=== PATIENT | female | born 1945 | race Caucasian/White ===

== ENCOUNTER 2021-09-15 08:33 | Outpatient (CLI) | payer MEDICARE, BC | END 2021-09-15 08:34 | disposition home or self-care (01) | LOC: CSHMAMMO 08:33 | PROVIDERS: ATTEND Family Medicine | DX: Z12.31 Encounter for screening mammogram for malignant neoplasm of breast (principal); Z91.89 Other specified personal risk factors, not elsewhere classified; Z80.3 Family history of malignant neoplasm of breast | CPT/HCPCS: 77063; 77067 ==

== ENCOUNTER 2022-08-07 14:47 | Observation (INO) | payer MEDICARE, BC ==
[~2022-08-07 14:47] MED LIST: Heparin 10,000 UNITS/ 10 ML VIAL ONE; Nitroglycerin 2% Ointment 1 INCH/1 GM Packet ONE
[2022-08-07] MEDS ORDERED: Ondansetron PF 4 MG/2 ML Vial ONE ×2 (15:13→15:26)
[2022-08-07] MEDS ORDERED: Morphine 4 MG/ML VIAL ONE ×3 (15:13→18:02)
[2022-08-07 15:32] LABS: #Basophils 0.1 10x3/uL (0.0-0.2); #Monocytes 0.8 10x3/uL (0.0-1.1); #Neutrophils 10.6 10x3/uL (1.5-8.4); %Basophils 0.4 % (0.0-2.0); %Eosinophils 0.1 % (0.0-6.0); %Monocytes 6.4 % (0.0-10.0); %Neutrophils 84.8 % (40.0-75.0); Hemoglobin 13.8 g/dL (12.0-15.5); Mean Corpuscular HGB CONC 34.4 g/dL (32.0-36.0); Mean Corpuscular Hemoglobin 29.4 pg (27.0-33.0); Mean Corpuscular Volume 85.3 fl (81.6-98.3); Mean Platelet Volume 11.3 fl (7.4-10.4); Platelet Count 177 10x3/uL (150-450); RBC Distribution Width 12.6 % (11.5-14.5); White Blood Cell (WBC) Count 12.5 10x3/uL (3.5-10.5)
[2022-08-07 15:44] LABS: ALT (SGPT) 16 U/L (8-55); AST (SGOT) 26 U/L (5-34); Albumin 4.4 g/dL (3.4-4.8); Alkaline Phosphatase 57 U/L (40-110); Anion Gap 15 mmol/L (10-20); BUN (Urea Nitrogen) 14 mg/dL (9.8-20.1); Bilirubin, Total 1.1 mg/dL (0.2-1.2); Calc. Creatinine Clearance 0 mL/min (70-130); Calcium 9.8 mg/dL (7.8-10.44); Carbon Dioxide 26 mmol/L (23-31); Chloride 99 mmol/L (98-107); Estimated GFR 66; Globulin 3.3 g/dL (2.4-3.5); Glucose 123 mg/dL (83-110); Potassium 3.9 mmol/L (3.5-5.1); Protein, Total 7.7 g/dL (5.8-8.1); Sodium 136 mmol/L (136-145)
[2022-08-07] MEDS ORDERED: Nitroglycerin 0.4 MG TAB 1 EACH ONE ×2 (15:54→16:18)
[2022-08-07] MEDS ORDERED: Aspirin Chewable 81 MG TAB ONE (16:20)
[2022-08-07] MEDS ORDERED: Fentanyl 100 MCG/2 ML VIAL ONE (16:29)
[2022-08-07] MEDS ORDERED: Midazolam HCl 2 mg/2 ml Vial ONE (16:29)
[2022-08-07] MEDS ORDERED: Heparin 10,000 UNITS/ 10 ML VIAL ONE (16:29)
[2022-08-07] MEDS ORDERED: Heparin 25,000 units/D5W 500 ML ONE (16:31)
[2022-08-07] MEDS ORDERED: Lidocaine 1% 20 ML MDV ONE (16:31)
[2022-08-07] MEDS ORDERED: Adenosine 6 MG/2 ML VIAL ONE (16:31)
[2022-08-07] MEDS ORDERED: Nitroglycerin 50 MG/250 ML BOT 250 ML ONE (16:31)
[2022-08-07] MEDS ORDERED: Sodium Chloride 0.9% 1,000 ML ONE (16:32)
[2022-08-07] MEDS ORDERED: Piperacillin/Tazobactam 4.5 GM VIAL ONE (17:07)
[2022-08-07 17:30] LABS: Bilirubin Neg (Negative); Blood, Urine Negative (Negative); Clarity Clear (Clear); Glucose, Urine (Dipstick) Normal (Negative); Ketone, Urine 15 mg/dL (Negative); Leukocyte 25 (Negative); Nitrite Negative (Negative); Protein, Urine (Dipstick) Negative (Neg-Trace); Specific Gravity, Urine 1.015 (1.002-1.036); Urobilinogen Normal mg/dL (Less than 2)
[2022-08-07] MEDS ORDERED: Ondansetron HCl/PF 4 MG in Sodium Chloride 0.9% 50 ML IVPB PRN (17:34)
[2022-08-07] MEDS ORDERED: Morphine 2 MG/ML VIAL SLOW IVP PRN (17:34)
[2022-08-07] MEDS ORDERED: hydrALAZINE 25 MG TAB PO PRN (17:34)
[2022-08-07] MEDS ORDERED: Nitroglycerin 0.4 MG TAB (25 Tab Bottle) SL PRN (17:34)
[2022-08-07] MEDS ORDERED: Sodium Chloride 0.9% 1,000 ML IV SCH (17:45)
[2022-08-07 17:49] LABS: Bacteria/HPF None Seen HPF (None Seen); RBC/HPF 0-3 HPF (0-3); Squamous Epithelial 0-3 HPF (0-3); WBC/HPF 0-3 HPF (0-3)
[2022-08-07 18:01] LABS: SARS-CoV-2 NAA Rapid Test Not Detected (NotDetected)
[2022-08-07] MEDS ORDERED: Ketorolac Tromethamine 30 MG/ML VIAL ONE (18:02)
[2022-08-07 20:10] VITALS: BMI 22.8
[2022-08-07] MEDS ORDERED: cloNIDine 0.1 MG TAB PO SCH (21:00)
[2022-08-07] MEDS ORDERED: Labetalol HCl 100 MG/20 ML VIAL SLOW IVP PRN (21:16)
[2022-08-07] MEDS ORDERED: Lisinopril 10 MG TAB PO SCH (22:15)
[2022-08-07] MEDS: Sodium Chloride 0.9% 1,000 ML IV SCH (22:30)
[2022-08-07] MEDS ORDERED: NIFEdipine XL 30 MG TAB PO SCH (23:30)
[2022-08-08] MEDS: Piperacillin/Tazobactam 3.375 GM in Sodium Chloride 0.9% 100 ML IVPB SCH ×3 (00:51→17:00)
[2022-08-08] MEDS ORDERED: Atenolol 50 MG TAB PO SCH (01:00)
[2022-08-08 05:33] LABS: Hemoglobin 13.7 g/dL (12.0-15.5); MDiff Complete? YES; Mean Corpuscular HGB CONC 34.6 g/dL (32.0-36.0); Mean Corpuscular Hemoglobin 29.7 pg (27.0-33.0); Mean Corpuscular Volume 85.9 fl (81.6-98.3); Platelet Count 141 10x3/uL (150-450); Red Blood Cell (RBC) Count 4.61 10x6/uL (3.90-5.03); White Blood Cell (WBC) Count 14.9 10x3/uL (3.5-10.5)
[2022-08-08 05:50] LABS: ALT (SGPT) 12 U/L (8-55); AST (SGOT) 24 U/L (5-34); Albumin 3.7 g/dL (3.4-4.8); Alkaline Phosphatase 52 U/L (40-110); Anion Gap 17 mmol/L (10-20); BUN (Urea Nitrogen) 12 mg/dL (9.8-20.1); Bilirubin, Total 1.3 mg/dL (0.2-1.2); Calc. Creatinine Clearance 55 mL/min (70-130); Calcium 8.8 mg/dL (7.8-10.44); Carbon Dioxide 21 mmol/L (23-31); Chloride 105 mmol/L (98-107); Estimated GFR 68; Globulin 2.9 g/dL (2.4-3.5); Glucose 88 mg/dL (83-110); Potassium 3.6 mmol/L (3.5-5.1); Protein, Total 6.6 g/dL (5.8-8.1); Sodium 139 mmol/L (136-145)
[2022-08-08 05:53] LABS: Troponin I 0.011 ng/mL (< 0.028)
[2022-08-08] MEDS: Morphine 4 MG/ML VIAL SLOW IVP PRN ×2 (06:19→17:05)
[2022-08-08 06:52] LABS: Band 6 % (5-11); Lymphocytes 7 % (21-51); Monocytes 4 % (0-10); Neutrophil 83 % (42-75)
[2022-08-08 06:53] LABS: Diff Comment (RBC Morph SCRN) NORMAL
[2022-08-08 06:54] LABS: Platelet Morphology Comment Appears Adequate
[2022-08-08] MEDS ORDERED: Spironolactone 25 MG TAB PO SCH (08:00)
[2022-08-08] MEDS ORDERED: EPINEPHrine 1 MG/ML AMP ONE (08:07)
[2022-08-08] MEDS ORDERED: Bupivacaine PF 0.5% 30 ML VIAL ONE (08:07)
[2022-08-08] MEDS ORDERED: Atenolol 25 MG TAB PO SCH (09:00)
[2022-08-08] MEDS ORDERED: NIFEdipine XL 30 MG TAB PO SCH (09:00)
[2022-08-08] MEDS ORDERED: Lisinopril 10 MG TAB PO SCH ×2 (09:00→21:00)
[2022-08-08] MEDS ORDERED: Fentanyl 250 MCG/5 ML VIAL ONE (14:59)
[2022-08-08] MEDS ORDERED: PROPOFOL 20 ML ONE (14:59)
[2022-08-08] MEDS ORDERED: Succinylcholine 200 MG/10 ml SYRINGE FS ONE (14:59)
[2022-08-08] MEDS ORDERED: PHENYLEPHRINE-NS 100 MCG/ML 10 ML SYRINGE ONE (14:59)
[2022-08-08] MEDS ORDERED: Glycopyrrolate 0.2 MG/ML 5 ML SYRINGE ONE (15:17)
[2022-08-08] MEDS: Sodium Chloride 0.9% 1,000 ML IV SCH ×2 (15:19→18:08)
[2022-08-08] MEDS ORDERED: Lidocaine 2% MPF 10 ML AMP (For Epidural Use) ONE (15:23)
[2022-08-08 18:02] VITALS: TEMP 96.7
[2022-08-08] MEDS ORDERED: traMADol HCl 50 MG TAB PO PRN (18:48)
[2022-08-08] MEDS ORDERED: HYDROcodone/Acetaminophen 5/325 mg Tablet PO PRN (18:56)
[2022-08-08 20:34] VITALS: BP 126/58
[2022-08-08] MEDS ORDERED: Lisinopril 20 MG TAB PO SCH (21:00)
== END 2022-08-08 22:00 | disposition home or self-care (01) ==
LOC: CSHERS 14:47 → CSHTELE 19:52 → INTOOBSV 19:52
PROVIDERS: ADMIT Surgery; ATTEND Hospitalist
PROC: 0DTJ4ZZ Resection of Appendix, Percutaneous Endoscopic Approach (ICD-10-PCS; principal; 2022-08-08)
DX: K35.890 Other acute appendicitis without perforation or gangrene (principal); Z20.822 Contact with and (suspected) exposure to COVID-19; R63.0 Anorexia; E78.5 Hyperlipidemia, unspecified; I10 Essential (primary) hypertension; E03.9 Hypothyroidism, unspecified; I95.9 Hypotension, unspecified; Z90.710 Acquired absence of both cervix and uterus; Z79.890 Hormone replacement therapy; Z79.899 Other long term (current) drug therapy; Z68.22 Body mass index [BMI] 22.0-22.9, adult
CPT/HCPCS: 44970; 71250; 74177; 80053; 83605; 84484 ×2; 85025; 87086; 93005; 96374; 96375; 96376; 99285; U0002; 36415; 81003; 81015; 84443; 88304; A4649; J0153; J0171; J1644; J1885; J2250; J2270; J2405; J2543; J2704; J3010; J3490; J7050; S0020

== ENCOUNTER 2022-09-17 10:51 | Outpatient (CLI) | payer MEDICARE, BC | END 2022-09-17 10:52 | disposition home or self-care (01) | LOC: CSHMAMMO 10:51 | PROVIDERS: ATTEND Obstetrics & Gynecology | DX: Z12.31 Encounter for screening mammogram for malignant neoplasm of breast (principal); Z91.89 Other specified personal risk factors, not elsewhere classified; Z80.3 Family history of malignant neoplasm of breast | CPT/HCPCS: 77063; 77067 ==

== ENCOUNTER 2023-03-11 11:23 | Outpatient (CLI) | payer MEDICARE, BC | END 2023-03-11 11:24 | disposition home or self-care (01) | LOC: CSHMAMMO 11:23 | PROVIDERS: ATTEND Family Medicine | DX: M85.9 Disorder of bone density and structure, unspecified (principal); M85.80 Other specified disorders of bone density and structure, unspecified site; Z13.820 Encounter for screening for osteoporosis | CPT/HCPCS: 77080 ==

== ENCOUNTER 2023-09-20 08:52 | Outpatient (CLI) | payer MEDICARE, BC | END 2023-09-20 08:53 | disposition home or self-care (01) | LOC: CSHMAMMO 08:52 | PROVIDERS: ATTEND Obstetrics & Gynecology | DX: Z12.31 Encounter for screening mammogram for malignant neoplasm of breast (principal); Z80.3 Family history of malignant neoplasm of breast; Z91.89 Other specified personal risk factors, not elsewhere classified | CPT/HCPCS: 77063; 77067 ==

== ENCOUNTER 2024-08-12 03:53 | Emergency (ER) | payer MEDICARE ==
[2024-08-12 04:28] LABS: #Basophils 0.08 10x3/uL (0.0-0.2); #Eosinphils 0.16 10x3/uL (0.0-0.5); #Monocytes 0.62 10x3/uL (0.0-1.1); %Basophils 1.3 % (0.0-2.0); %Eosinophils 2.7 % (0.0-6.0); %Monocytes 10.4 % (0.0-10.0); %Neutrophils 55.4 % (40.0-75.0); Hematocrit 43.2 % (34.9-44.5); Hemoglobin 14.7 g/dL (12.0-15.5); Mean Corpuscular Hemoglobin 30.1 pg (27.0-33.0); Mean Corpuscular Volume 88.5 fL (81.6-98.3); Mean Platelet Volume 10.6 fL (7.4-10.4); Platelet Count 183 10x3/uL (150-450); RBC Distribution Width 13.1 % (11.5-14.5); Red Blood Cell (RBC) Count 4.88 10x6/uL (3.90-5.03)
[2024-08-12 04:42] LABS: ALT (SGPT) 15 U/L (8-55); AST (SGOT) 25 U/L (5-34); Albumin 4.1 g/dL (3.4-4.8); Alkaline Phosphatase 66 U/L (40-110); Anion Gap 15 mmol/L (10-20); BUN (Urea Nitrogen) 16 mg/dL (9.8-20.1); Bilirubin, Total 0.6 mg/dL (0.2-1.2); Calc. Creatinine Clearance 0 mL/min (70-130); Calcium 9.4 mg/dL (7.8-10.44); Carbon Dioxide 24 mmol/L (23-31); Chloride 106 mmol/L (98-107); Estimated GFR 68; Globulin 3.3 g/dL (2.4-3.5); Glucose 89 mg/dL (83-110); Potassium 3.8 mmol/L (3.5-5.1); Protein, Total 7.4 g/dL (5.8-8.1); Sodium 141 mmol/L (136-145)
[2024-08-12 04:48] LABS: Troponin I Less than 0.010 ng/mL (< 0.028)
== END 2024-08-12 05:56 | disposition home or self-care (01) ==
LOC: CSHERS 03:53
DX: R00.2 Palpitations (principal); I10 Essential (primary) hypertension; E78.5 Hyperlipidemia, unspecified; E03.9 Hypothyroidism, unspecified; Z79.82 Long term (current) use of aspirin; Z79.899 Other long term (current) drug therapy; Z79.890 Hormone replacement therapy
CPT/HCPCS: 71045; 80053; 84484; 85025; 93005; 93010

== ENCOUNTER 2024-09-21 10:12 | Outpatient (CLI) | payer MEDICARE | END 2024-09-21 10:13 | disposition home or self-care (01) | LOC: CSHMAMMO 10:12 | PROVIDERS: ATTEND Obstetrics & Gynecology | DX: Z12.31 Encounter for screening mammogram for malignant neoplasm of breast (principal); Z80.3 Family history of malignant neoplasm of breast; Z91.89 Other specified personal risk factors, not elsewhere classified | CPT/HCPCS: 77063; 77067 ==